=== PATIENT | male | born 1995 ===

== ENCOUNTER 2023-03-07 06:04 | Emergency (ER) | payer OTHER, SELFPAY ==
--- OUTSIDE RECORDS SUMMARY | 2023-03-07 06:07 | XMS REPORT | Continuity of Care Document ---
:1995 Author Organization [facility] t Address [address] [place] [id number] Care Team Providers Name Role Phone Unavailable Unavailable Unavailable Problems This patient has no known problems. Allergies, Adverse Reactions, Alerts This patient has no known allergies or adverse reactions. Medications This patient has no known medications. Procedures This patient has no known procedures. Results This patient has no known results.
[2023-03-07 06:44] LABS: Absolute Lymphocytes (CBC) 1.5 K/uL (0.7-4.9); Hematocrit 46.8 % (39.6-49.0); MCV 83.4 fL (80-100); MPV 7.2 fL (7.6-11.3); RBC Red Blood Cell Count 5.61 M/uL (4.33-5.43)
[2023-03-07] MEDS ORDERED: ONDANSETRON 4 MG/2 ML VIAL ONE (06:49)
[2023-03-07 07:05] LABS: Albumin 3.6 g/dL (3.4-5.0); Bilirubin Total 0.6 mg/dL (0.2-1.0); Potassium 3.5 mEq/L (3.5-5.1); Protein, Total 7.2 g/dL (6.4-8.2)
[2023-03-07] MEDS ORDERED: NA CHLORIDE 0.9% 1,000 ML ONE ×2 (07:26→08:25)
--- NOTE | 2023-03-07 07:31 | EDPHYS ---
Physician Documentation [facility] Name: Adrian Arnold Age: 27 yrs Sex: Male : 1995 Arrival Date: 03/07/2023 Time: 06:04 Bed 18 Private MD: ED Physician Blake Mcclure HPI: 03/07 07:24 This 27 yrs old Male presents to ER via Ambulatory with complaints of froy Vomiting/Diarrhea. 07:24 The patient presents to the emergency department with nausea, vomiting, that is froy intermittent, described as bilious, diarrhea, that is continuous. Onset: The symptoms/episode began/occurred 3 day(s) ago. Possible causes: unknown. The symptoms are aggravated by nothing. The symptoms are alleviated by nothing. Severity of symptoms: At their worst the symptoms were moderate in the emergency department the symptoms are unchanged. The patient has experienced a previous episode. Historical: - Allergies: 06:16 No Known Allergies; aa9 - Home Meds: 06:16 None [Active]; aa9 - PMHx: 06:16 None; aa9 - PSHx: 06:16 None; aa9 - Immunization history:: Client reports having NOT received the Covid vaccine. - Social history:: Smoking status: Patient denies any tobacco usage or history of. Patient uses Cannabis . ROS: 07:26 Constitutional: Negative for fever, chills, and weight loss, Eyes: Negative for injury, froy pain, redness, and discharge, ENT: Negative for injury, pain, and discharge, Neck: Negative for injury, pain, and swelling, Cardiovascular: Negative for chest pain, palpitations, and edema, Respiratory: Negative for shortness of breath, cough, wheezing, and pleuritic chest pain, Back: Negative for injury and pain, : Negative for injury, bleeding, discharge, and swelling, MS/Extremity: Negative for injury and deformity, Skin: Negative for injury, rash, and discoloration, Neuro: Negative for headache, weakness, numbness, tingling, and seizure. 07:26 Abdomen/GI: Positive for abdominal pain, nausea and vomiting, nausea, vomiting, and diarrhea, nausea, vomiting, diarrhea. Exam: 07:26 Constitutional: This is a well developed, well nourished patient who is awake, alert, froy and in no acute distress. Head/Face: Normocephalic, atraumatic. Eyes: Pupils equal round and reactive to light, extra-ocular motions intact. Lids and lashes normal. Conjunctiva and sclera are non-icteric and not injected. Cornea within normal limits. Periorbital areas with no swelling, redness, or edema. ENT: Nares patent. No nasal discharge, no septal abnormalities noted. Tympanic membranes are normal and external auditory canals are clear. Oropharynx with no redness, swelling, or masses, exudates, or evidence of obstruction, uvula midline. Mucous membranes moist. Neck: Trachea midline, no thyromegaly or masses palpated, and no cervical lymphadenopathy. Supple, full range of motion without nuchal rigidity, or vertebral point tenderness. No Meningismus. Chest/axilla: Normal chest wall appearance and motion. Nontender with no deformity. No lesions are appreciated. Cardiovascular: Regular rate and rhythm with a normal S1 and S2. No gallops, murmurs, or rubs. Normal PMI, no JVD. No pulse deficits. Respiratory: Lungs have equal breath sounds bilaterally, clear to auscultation and percussion. No rales, rhonchi or wheezes noted. No increased work of breathing, no retractions or nasal flaring. Abdomen/GI: Soft, non-tender, with normal bowel sounds. No distension or tympany. No guarding or rebound. No evidence of tenderness throughout. Back: No spinal tenderness. No costovertebral tenderness. Full range of motion. Male : Normal genitalia with no discharge or lesions. Skin: Warm, dry with normal turgor. Normal color with no rashes, no lesions, and no evidence of cellulitis. MS/ Extremity: Pulses equal, no cyanosis. Neurovascular intact. Full, normal range of motion. Neuro: Awake and alert, GCS 15, oriented to person, place, time, and situation. Cranial nerves II-XII grossly intact. Motor strength 5/5 in all extremities. Sensory grossly intact. Cerebellar exam normal. Normal gait. Psych: Awake, alert, with orientation to person, place and time. Behavior, mood, and affect are within normal limits. Vital Signs: 06:15 BP 149 / 93; Pulse 69; Resp 18; Temp 98.1; Pulse Ox 98% on R/A; Weight 99.79 kg; Height aa9 5 ft. 10 in. ; 06:54 BP 133 / 86; Pulse 60; Resp 17; Pulse Ox 100% ; aa9 08:00 BP 134 / 77; Pulse 65; Resp 16; Pulse Ox 98% on R/A; sg5 09:00 BP 137 / 87; Pulse 60; Resp 16; Pulse Ox 99% on R/A; sg5 06:15 Body Mass Index 31.57 (99.79 kg, 177.8 cm) aa9 MDM: 07:06 Patient medically screened. froy 07:27 Differential diagnosis: Nonspecific abd pain, gastritis, cholecystitis, diverticulitis, froy viral gastroenteritis, gastroenteritis. Data reviewed: vital signs, nurses notes, lab test result(s), CBC, electrolytes, hepatic panel. Consideration of Admission/Observation Escalation of care including admission/observation considered. I considered the following discharge prescriptions or medication management in the emergency department Medications were administered in the Emergency Department. See MAR. Test considered but Not performed: CT: no ct abd pelvis. 03/07 06:25 Order name: CBC with Diff; Complete Time: 07:12 kdr 03/07 06:25 Order name: CMP; Complete Time: 07:12 kdr 03/07 06:25 Order name: Lipase; Complete Time: 07:12 kdr 03/07 06:25 Order name: Urinalysis w/ reflexes kdr 03/07 06:25 Order name: IV Saline Lock; Complete Time: 06:34 kdr 03/07 06:25 Order name: Labs collected and sent; Complete Time: 06:34 kdr Administered Medications: 06:44 Drug: Ondansetron IVP 4 mg Route: IVP; Site: right antecubital; aa9 07:21 Drug: NS 0.9% IV 1000 ml Route: IV; Rate: 1 bolus; Site: right antecubital; sg5 08:29 Follow up: IV Status: Completed infusion; IV Intake: 1000ml sg5 08:29 Drug: NS 0.9% IV 1000 ml Route: IV; Rate: 1 bolus; Site: right antecubital; sg5 09:31 Follow up: IV Status: Completed infusion; IV Intake: 1000ml sg5 08:29 Drug: Promethazine IM 25 mg Route: IM; Site: right deltoid; sg5 Disposition Summary: 03/07/23 07:31 Discharge Ordered Location: Home froy Problem: new froy Symptoms: have improved froy Condition: Stable froy Diagnosis - Vomiting froy - Nausea with vomiting, unspecified froy Followup: froy - With: Private Physician - When: 2 - 3 days - Reason: Recheck today's complaints, Continuance of care, Re-evaluation by your physician Discharge Instructions: - Discharge Summary Sheet froy - Diarrhea, Adult froy - Nausea and Vomiting, Adult froy - Diarrhea, Adult, [id number] [facility] Forms: - Work release form froy - Medication Reconciliation Form froy - Thank You Letter froy - Antibiotic Education froy - Prescription Opioid Use [facility] Prescriptions: - Zofran 4 mg Oral Tablet - take 1 tablet by ORAL route every 12 hours As needed; 20 tablet; Refills: 0, froy Product Selection Permitted - promethazine 25 mg Oral Tablet - take 1 tablet by ORAL route every 6 hours As needed; 20 tablet; Refills: 0, froy Product Selection Permitted Signatures: Dispatcher [employer] Blake Harper MD MD cha Rittger, Kevin, MD MD kdr Avalos, Aylin RN RN aa9 Ashlee Shea RN RN sg5
--- NOTE | 2023-03-07 07:31 | ER ---
Nurse's Notes [facility] Name: Adrian Arnold Age: 27 yrs Sex: Male : 1995 Arrival Date: 03/07/2023 Time: 06:04 Bed 18 Private MD: Diagnosis: Vomiting;Nausea with vomiting, unspecified Presentation: 03/07 06:15 Chief complaint: Patient states: I have not been able hold anything down since Tuesday, aa9 Pepto isn't helping. I have not eaten anything but I still feel sick to my stomach. Coronavirus screen: Vaccine status: Patient reports being unvaccinated. Ebola Screen: No symptoms or risks identified at this time. Initial Sepsis Screen: Does the patient meet any 2 criteria? No. Patient's initial sepsis screen is negative. Does the patient have a suspected source of infection? No. Patient's initial sepsis screen is negative. Risk Assessment: Do you want to hurt yourself or someone else? Patient reports no desire to harm self or others. Onset of symptoms was March 07, 2023. 06:15 Method Of Arrival: Ambulatory aa9 06:15 Acuity: RENETTA 3 aa9 Triage Assessment: 06:17 General: Appears uncomfortable, Behavior is calm, cooperative. Neuro: Level of aa9 Consciousness is awake, alert, obeys commands, Oriented to person, place, time, situation. Cardiovascular: Patient's skin is warm and dry. Respiratory: Airway is patent Respiratory effort is even, unlabored. GI: Reports diarrhea, intolerance of fluids, intolerance of food, nausea, vomiting. Historical: - Allergies: 06:16 No Known Allergies; aa9 - Home Meds: 06:16 None [Active]; aa9 - PMHx: 06:16 None; aa9 - PSHx: 06:16 None; aa9 - Immunization history:: Client reports having NOT received the Covid vaccine. - Social history:: Smoking status: Patient denies any tobacco usage or history of. Patient uses Cannabis . Screenin:54 [facility] [place] ED Fall Risk Assessment (Adult) History of falling in the last 3 months, aa9 including since admission No falls in past 3 months (0 pts) Confusion or Disorientation No (0 pts) Intoxicated or Sedated No (0 pts) Impaired Gait No (0 pts) Mobility Assist Device Used No (0 pt) Altered Elimination No (0 pt) Score/Fall Risk Level 0 - 2 = Low Risk Oriented to surroundings, Maintained a safe environment, Educated pt \T\ family on fall prevention, incl call for assistance when getting out of bed. Abuse screen: Denies threats or abuse. Denies injuries from another. Nutritional screening: Has had N/V for 3 or more days. Tuberculosis screening: No symptoms or risk factors identified. Assessment: 06:53 General: Appears uncomfortable, obese, unkempt, Behavior is calm, cooperative. Pain: aa9 Complains of pain in generalized body aches. Neuro: Level of Consciousness is awake, alert, obeys commands, Oriented to person, place, time, situation. Cardiovascular: Patient's skin is warm and dry. Respiratory: Airway is patent Respiratory effort is even, unlabored. GI: Reports diarrhea, nausea, vomiting. Derm: Skin is intact, is healthy with good turgor. 07:07 General: Appears uncomfortable, Behavior is calm, cooperative. Pain: Complains of pain sg5 in abdomen. Neuro: Level of Consciousness is awake, alert, obeys commands, Oriented to person, place, time, situation. Cardiovascular: Patient's skin is warm and dry. Respiratory: Airway is patent Respiratory effort is even, unlabored. GI: Reports lower abdominal pain, nausea. GI: Abdomen is round non-distended, Reports. Derm: Skin is intact, is healthy with good turgor. Vital Signs: 06:15 BP 149 / 93; Pulse 69; Resp 18; Temp 98.1; Pulse Ox 98% on R/A; Weight 99.79 kg; Height aa9 5 ft. 10 in. ; 06:54 BP 133 / 86; Pulse 60; Resp 17; Pulse Ox 100% ; aa9 08:00 BP 134 / 77; Pulse 65; Resp 16; Pulse Ox 98% on R/A; sg5 09:00 BP 137 / 87; Pulse 60; Resp 16; Pulse Ox 99% on R/A; sg5 06:15 Body Mass Index 31.57 (99.79 kg, 177.8 cm) aa9 ED Course: 06:06 Patient arrived in ED. ag3 06:15 Lazara Grossman, RN is Primary Nurse. aa9 06:16 Triage completed. aa9 06:18 Arm band placed on. aa9 06:33 Inserted saline lock: 20 gauge in right antecubital area, using aseptic technique. aa9 Blood collected. 06:35 CMP Sent. aa 06:35 CBC with Diff Sent. aa9 06:35 Lipase Sent. aa9 06:54 Patient has correct armband on for positive identification. Bed in low position. Call aa9 light in reach. Pulse ox on. NIBP on. 06:55 Diet: Patient given water. aa9 07:06 Blake Mcclure MD is Attending Physician. froy 09:31 IV discontinued. sg5 09:35 No provider procedures requiring assistance completed. sg5 Administered Medications: 06:44 Drug: Ondansetron IVP 4 mg Route: IVP; Site: right antecubital; aa9 07:21 Drug: NS 0.9% IV 1000 ml Route: IV; Rate: 1 bolus; Site: right antecubital; sg5 08:29 Follow up: IV Status: Completed infusion; IV Intake: 1000ml sg5 08:29 Drug: NS 0.9% IV 1000 ml Route: IV; Rate: 1 bolus; Site: right antecubital; sg5 09:31 Follow up: IV Status: Completed infusion; IV Intake: 1000ml sg5 08:29 Drug: Promethazine IM 25 mg Route: IM; Site: right deltoid; sg5 Medication: 09:35 VIS not applicable for this client. sg5 Intake: 08:29 IV: 1000ml; Total: 1000ml. sg5 09:31 IV: 1000ml; Total: 2000ml. sg5 Outcome: 07:31 Discharge ordered by . [facility] 09:35 Discharged to home ambulatory. sg5 09:35 Condition: good 09:35 Discharge instructions given to patient, Instructed on discharge instructions, follow up and referral plans. 09:35 Patient left the ED. sg5 Signatures: Blake Mcclure MD MD cha Gomez, Alice ag3 Avalos, Aylin RN RN aa9 Ashlee Shea RN RN sg5
[2023-03-07] MEDS ORDERED: PROMETHAZINE INJ 25 MG/ML AMP ONE (08:25)
[2023-03-07 08:32] LABS: Specific Gravity > 1.030 (1.005-1.030); Urine Bacteria None Seen /HPF (<20); Urine Bilirubin 1+ (Negative); Urine Blood Negative (Negative); Urine Clarity Clear (Clear); Urine Color Yellow (Yellow); Urine Glucose NEGATIVE (Negative); Urine Mucus 2+ /HPF (None Seen); Urine Protein 1+ (Negative); Urine RBC <5 /HPF (None Seen); Urine Urobilinogen Normal (Normal); Urine pH 5.5 (5.0-7.0)
[2023-03-07 09:40] VITALS: TEMP 98.1
[2023-03-07 09:46] VITALS: BP 137/87; O2SAT 99
== END 2023-03-07 09:35 | disposition home or self-care (01) ==
LOC: ER 06:04
DX: R11.10 Vomiting, unspecified (principal)
CPT/HCPCS: 36415; 80053; 81001; 83690; 85025; 96361; 96372; 96374; 99284; J2405; J2550; J7030